=== PATIENT | female | born 1970 | race Caucasian/White ===

== ENCOUNTER 2019-06-29 23:12 | Emergency (ER) | payer MEDICAID ==
[~2019-06-29] VITALS: Ht 157.5 cm; Wt 118.4 kg
[2019-06-29 23:12] VITALS: BP 149/98
--- NOTE | 2019-06-29 23:12 | NUR ---
ED Nurse Note: Pt biba from home co chest pain that radiates from jaw to lower back and left arm. Pt reports pain 6/10. Pt denies previous medical history. Pt states that pain is worse on lower back. Awaiting ERMD. Pt aao x 4, no s/s of distress noted.
[2019-06-29] MEDS ORDERED: VENTOLIN HFA18 GM INH (23:15)
[2019-06-29] MEDS ORDERED: PAXIL30 MG ORAL (23:15)
[2019-06-29] MEDS ORDERED: ABILIFY2 MG ORAL (23:15)
--- NOTE | 2019-06-29 23:45 | NUR ---
ED Nurse Note: awaiting ERMD
--- NOTE | 2019-06-29 23:50 | NUR ---
ED Nurse Note: EKg performed by echocardiograph technician
--- NOTE | 2019-06-29 23:59 | NUR ---
ED Nurse Note: all blood work sent to lab; awaiting results
--- NOTE | 2019-06-30 | NUR ---
ED Nurse Note: all medications administered, no adverse reactions noted
--- NOTE | 2019-06-30 00:15 | NUR ---
ED Nurse Note: Pt resting in bed, vss no s/s of distress noted.
[2019-06-30 01:15] VITALS: BP 149/98
[2019-06-30] MEDS ORDERED: IBUPROFEN600 MG ORAL (01:15)
--- NOTE | 2019-06-30 01:15 | Emergency Room Report ---
History of Present Illness General Chief Complaint: Pain Source: Patient, EMS Present Illness HPI This a 48-year-old female with history of asthma. She presents with chief complaint of jaw pain and back pain. She said she was watching TV and developed left-sided jaw pain. She said it radiated to her back and all the way down her lower back. No chest pain. No exertional component. No fever chills. Nothing made it better pain is made it worse. No dental pain. Allergies: Coded Allergies: MORPHINE (Verified Allergy, Unknown, 06/29/19) PENICILLINS (Verified Allergy, Unknown, 06/29/19) TRAMADOL (Verified Allergy, Unknown, 06/29/19) Patient History Past Medical History: see triage record, old chart reviewed, asthma Past Surgical History: none Pertinent Family History: none Social History: Denies: smoking Now: No Immunizations: other Reviewed Nursing Documentation: PMH: Agreed; PSxH: Agreed Nursing Documentation-PMH Hx Cardiac Problems: Yes Hx Asthma: Yes History Of Psychiatric Problem: Yes - SCHIZO Review of Systems Eye: Denies: eye pain, blurred vision ENT: Denies: ear pain, nose congestion, throat swelling Respiratory: Denies: cough, shortness of breath Cardiovascular: Denies: chest pain, palpitations Gastrointestinal: Denies: abdominal pain, diarrhea, nausea, vomiting Musculoskeletal: Denies: back pain, joint pain Skin: Denies: rash Neurological: Denies: headache, numbness Endocrine: Denies: increased thirst, increased urine Hematologic/Lymphatic: Denies: easy bruising All Other Systems: negative except mentioned in HPI Physical Exam Vital Signs Date Time Temp Pulse Resp B/P (MAP) Pulse Ox O2 Delivery O2 Flow Rate FiO2 06/29/19 23:08 98.4 80 22 150/100 (117) 98 Room Air Vitals with high blood pressure Sp02 EP Interpretation: reviewed, normal General Appearance: well appearing, no apparent distress, alert Head: normocephalic, atraumatic Eyes: bilateral eye PERRL, bilateral eye EOMI ENT: hearing grossly normal, normal pharynx Neck: full range of motion, supple, no meningismus Respiratory: chest non-tender, lungs clear, normal breath sounds Cardiovascular #1: regular rate, rhythm, no murmur Gastrointestinal: normal bowel sounds, non tender, no mass, no organomegaly, no bruit, non-distended Musculoskeletal: back normal, normal range of motion, gait/station normal Psychiatric: mood/affect normal Medical Decision Making Diagnostic Impression: Primary Impression: Jaw pain, non-TMJ Additional Impression: Low back pain Qualified Codes: M54.5 - Low back pain ER Course Patient presents with jaw pain and back pain. No evidence of ACS, PE, dissection name a few. Troponin negative. EKG normal. Will discharge home. EKG Diagnostic Results Rate: normal Rhythm: NSR ST Segments: no acute changes Last Vital Signs Date Time Temp Pulse Resp B/P (MAP) Pulse Ox O2 Delivery O2 Flow Rate FiO2 06/30/19 00:50 98.5 06/29/19 23:08 80 22 150/100 (117) 98 Room Air Status: improved Disposition: HOME, SELF-CARE Condition: Stable Scripts Ibuprofen* (MOTRIN*) 600 Mg Tablet 600 MG ORAL THREE TIMES A DAY, #30 TAB 0 Refills Prov: Migue Salas MD 06/30/19 Additional Instructions: Follow-up with your doctor in 7 days but return if symptoms worsen. Migue Salas MD Jun 30, 2019 01:15
[2019-06-30 01:29] VITALS: BP 145/92
--- NOTE | 2019-06-30 01:29 | NUR ---
ER DISCHARGE NOTE: Patient is cleared to be discharged home per ERMD, pt is aox4, on room air, with stable vital signs. pt was given dc and prescription instructions, pt was able to verbalize understanding, pt id band removed. pt is able to ambulate with steady gait. pt took all belongings.
== END 2019-06-30 01:29 | disposition home or self-care (01) ==
LOC: EDBD 23:12 → EMR 23:29
DX: R68.84 Jaw pain (principal); M54.5 Low back pain; F20.9 Schizophrenia, unspecified; Z88.0 Allergy status to penicillin; Z88.6 Allergy status to analgesic agent
CPT/HCPCS: 84484; Z7502; 99283